=== PATIENT | male | born 1965 | race Caucasian/White ===

== ENCOUNTER 2022-04-16 07:43 | Outpatient (CLI) | payer OTHER, SELFPAY ==
[2022-04-16 10:07] LABS: Chloride* 107 mmol/L (96-114); Potassium* 4.2 mmol/L (3.6-5.1); Sodium* 139 mmol/L (135-149)
[2022-04-16 10:10] LABS: Alanine Aminotransferase* 24 U/L (4-50); Blood Urea Nitrogen* 18 mg/dL (7-30); Carbon Dioxide* 28 mmol/L (20-32); Cholesterol* 157 mg/dL (90-199); Creatinine* 1.1 mg/dL (0.5-1.5); Estimated Glomerular Filt Rate 79 ml/min; Glucose* 96 mg/dL (60-115)
[2022-04-16 10:11] LABS: Calcium* 8.7 mg/dL (8.4-10.6); HDL Cholesterol* 38 mg/dL (>=40); LDL Cholesterol Calculated 87 mg/dL (<100); Triglycerides* 160 mg/dL (40-149)
[2022-04-16 10:43] LABS: PSA Screen* 0.29 ng/mL (0.10-4.00)
== END 2022-04-16 07:44 | disposition home or self-care (01) ==
LOC: NFLDREF 07:44
PROVIDERS: PCP Family Medicine; Visit Provider Family Medicine
DX: E78.5 Hyperlipidemia, unspecified (principal); Z12.5 Encounter for screening for malignant neoplasm of prostate
CPT/HCPCS: 80048; 80061; 84153; 84460

== ENCOUNTER 2023-04-08 09:01 | Outpatient (CLI) | payer OTHER, SELFPAY ==
--- OUTSIDE RECORDS SUMMARY | 2023-04-08 09:04 | XMS_ITS | Referral Summary ---
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 Name Role Phone No Ref-Primary, Physician Primary Care Provider Allergies No known active allergies Medications Medication Sig Dispensed Refills Start Date End Date Status simvastatin (ZOCOR) 40 MG tablet Daily 0 02/18/2020 Active aspirin (ASA) 81 MG chewable tablet Daily 0 Active finasteride (PROPECIA) 1 MG tablet Daily 0 02/18/2020 Active Immunizations Name Administration Dates Next Due COVID-19 MONOVALENT 12+ (Pfizer) 02/11/2021,05/22,05/13/2020 Influenza Vaccine 18-64 (Flublok) 02/27/2021, Influenza Vaccine >6 months,quad, PF 11/20/2018 Pneumococcal 23 valent 01/08/2014 TDAP (Adacel,Boostrix) 01/11/2014 Zoster recombinant adjuvanted (SHINGRIX) 022,02/27/2021 Social History Tobacco Use Types Packs/Day Years Used Date Smoking Tobacco: Never Assessed Adolescent Education Answer Date Record ed Getting School Help Needed Not on file 11/13 Sex and Gender Information Value Date Recorded Sex Assigned at Not on file Gender Identity Not on file Sexual Orientation Not on file Last Filed Vital Signs Vital Sign Reading Time Taken Comments Blood Pressure 126/70 06/14/2021 5:33 PM CDT Pulse 67 06/14/2021 5:33 PM CDT Temperature 36.2 ??C (97.2 ??F) 06/14/2021 5:33 PM CD T Respiratory Rate - - Oxygen Saturation 99% 06/14/2021 5:33 PM CDT Inhaled Oxygen Concentration - - Weight - - Height - - Body Mass Index - - Plan of Treatment Not on file Care Teams Sewer Line Photo Inspector Relationship Specialty Start Date End Date No Ref-Primary, Physician PCP - General 06/14/21
--- OUTSIDE RECORDS SUMMARY | 2023-04-08 09:04 | XMS_ITS | Clinical Summary ---
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 Name Role Phone No Ref-Primary, Physician Primary [...] Mass Index - - Plan of Treatment Health Maintenance Due Date Last Done Comments ADVANCE CARE PLANNING 1966 ANNUAL REVIEW OF HM ORDERS 1966 CT COLONOGRAPHY 1966 FIT 1966 FLEX SIG 1966 GLUCOSE 1966 HEPATITIS B IMMUNIZATION (1 of 3 - 3-dose series) 1966 YEARLY PREVENTIVE VISIT 1966 sDNA (Cologuard) 1966 COLONOSCOPY 1976 COLORECTAL CANCER SCREENING 1976 HIV SCREENING 1981 HEPATITIS C SCREENING 1984 LIPID 2006 COVID-19 Vaccine ( season) 2022 02/11/2021, 06/03/2020, 05/13/2020 INFLUENZA VACCINE (#1) 2022 2, 02/18/2020, 02/18/2020, Additional history exists PHQ-2 (once per calendar year) 2023 DTAP/TDAP/TD IMMUNIZATION (2 - Td or Tdap) 01/12/2024 01/11/2014 Pneumococcal Vaccine: Pediatrics (0 to 5 Years) and At-Risk Patients (6 to 64 Years) Aged Out 01/08/2014 No longer eligible based on patient's age to complete this topic ZOSTER IMMUNIZATION Completed 05/11/2021, 2 HPV IMMUNIZATION Aged Out No longer e ligible based on patient's age to complete this topic IPV IMMUNIZATION Aged Out No longer e ligible based on patient's age to complete this topic MENINGITIS IMMUNIZATION Aged Out No l onger eligible based on patient's age to complete this topic RSV MONOCLONAL ANTIBODY Aged Out No l onger eligible based on patient's age to complete this topic Care Teams Electric Lift Truck Driver Relationship Specialty Start Date End Date No Ref-Primary, Physician PCP - General 06/14/21
== END 2023-04-08 09:02 | disposition home or self-care (01) ==
PROVIDERS: PCP Family Medicine; Visit Provider Family Medicine
DX: Z00.00 Encounter for general adult medical examination without abnormal findings (principal); E78.2 Mixed hyperlipidemia; L64.9 Androgenic alopecia, unspecified
CPT/HCPCS: 80048; 80061; 84460

== ENCOUNTER 2024-04-06 07:45 | Outpatient (CLI) | payer OTHER, SELFPAY | END 2024-04-06 07:46 | disposition home or self-care (01) | LOC: NFLDREF 04-07 03:34 | PROVIDERS: PCP Family Medicine; Referring Provider Family Medicine; Visit Provider Family Medicine | DX: E78.2 Mixed hyperlipidemia (principal) | CPT/HCPCS: 80053; 80061 ==